=== PATIENT | male | born 1990 | race Two or more races ===

== ENCOUNTER 2018-08-25 16:34 | Emergency (ER) | payer OTHER ==
[2018-08-25] MEDS ORDERED: TRAMADOL HCL 50 MG TABLET PO ONE (17:02)
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
[2018-08-25 18:15] VITALS: BP 133/91
== END 2018-08-25 18:17 | disposition home or self-care (01) ==
LOC: ER 16:34
DX: T14.8XXA Other injury of unspecified body region, initial encounter (principal); T22.032A Burn of unspecified degree of left upper arm, initial encounter; S80.812A Abrasion, left lower leg, initial encounter; M25.562 Pain in left knee; M79.641 Pain in right hand; M25.531 Pain in right wrist; M79.89 Other specified soft tissue disorders; V49.50XA Passenger injured in collision with unspecified motor vehicles in traffic accident, initial encounter; Y93.84 Activity, sleeping; F17.200 Nicotine dependence, unspecified, uncomplicated
CPT/HCPCS: 99284